=== PATIENT | female | born 1945 | race African-American/Black ===

== ENCOUNTER 2020-05-31 15:32 | Emergency (ER) | payer OTHER ==
[~2020-05-31] VITALS: Ht 162.6 cm; Wt 86.2 kg
[~2020-05-31 15:32] MED LIST: AMLODIPINE PO; ASPIRIN EC81 M1 PO; AVAPRO 150 MG150 M1 PO; CLEOCIN HCL300 MG PO; DILAUDID PO; FLEXERIL PO; HCTZ PO; IBUPROFEN 800800 MG PO; LANTUS SC; LANTUS SUBQ; LIDODERM 5%1 PATCH TOP; METFORMIN HCL500 MG; METFORMIN PO; MOBIC; MOBIC7.5 MG PO; PREDNISONE; RELAFEN500 MG PO
[2020-05-31 16:39] LABS: URINE BILIRUBIN NEGATIVE (Negative); URINE BLOOD 1+ (Negative); URINE CLARITY CLEAR; URINE COLOR YELLOW; URINE GLUCOSE-RANDOM* NEGATIVE (Negative); URINE KETONES NEGATIVE (Negative); URINE LEUKOCYTES-REFLEX 1+ (Negative); URINE NITRITE-REFLEX NEGATIVE (Negative); URINE PROTEIN (DIPSTICK) 1+ (Negative); URINE UROBILINOGEN 0.2 E.U./dl (0.2-1.0)
[2020-05-31 16:49] LABS: HEMATOCRIT 27.5 % (37.0-47.0); HEMOGLOBIN 9.2 gm/dL (12.0-15.0); MCH 28.2 pg (26.0-34.0); MCHC 33.3 g/dL (28.0-37.0); MCV 84.6 fL (80.0-100.0); PLATELET COUNT 119 thou/uL (150-400); RBC 3.26 mil/uL (4.20-5.00); RDW 28.6 % (10.5-14.5); WBC 9.5 thou/uL (4.0-11.0)
[2020-05-31 16:53] LABS: BACTERIA-REFLEX >30 Many /HPF (None Seen)
[2020-05-31 16:54] LABS: CASTS None Seen /LPF (None Seen); CRYSTALS None Seen /LPF (None Seen); SQUAMOUS 0-3 Few /LPF (0-3); URINE WBC-REFLEX 0-5 Rare /HPF (0-5)
[2020-05-31 16:55] LABS: URINE RBC 3-10 Few /HPF (0-2)
[2020-05-31 17:05] LABS: ANION GAP 12 mmol/L (7-16); BUN 13 mg/dL (7-18); CALCIUM 8.3 mg/dL (8.5-10.1); CHLORIDE 106 mmol/L (98-107); CO2 24 mmol/L (21-32); CREATININE 0.8 mg/dL (0.6-1.0); GLUCOSE 119 mg/dL (74-106); SODIUM 142 mmol/L (136-145)
[2020-05-31 17:13] LABS: ALBUMIN 3.6 g/dL (3.4-5.0); LIPASE 49 U/L (73-393); SGOT 13 U/L (15-37); SGPT 19 U/L (30-65); TOTAL PROTEIN 6.1 g/dL (6.4-8.2); TROPONIN-I <0.06 ng/mL (<0.06)
[2020-05-31 17:24] LABS: ABSOLUTE NEUTROPHILS 8.3 thou/uL (1.4-8.2); NUCLEATED RBCS 1 /100WBC
[2020-05-31 17:25] LABS: ANISOCYTOSIS 1+; POLYCHROMASIA OCCASIONAL
[2020-05-31] MEDS ORDERED: TRAMADOL 50 MG50 MG PO (18:22)
[2020-05-31] MEDS ORDERED: DULCOLAX10 MG RECTAL (21:47)
[2020-05-31 22:27] VITALS: BP 130/51
--- NOTE | 2020-06-01 10:51 | EKG ---
[facility] [place] [address] ELECTROCARDIOGRAM REPORT Name: TAWANA GARDUNO Room #: [facility]#: [id number] Admission: 05/31/20 Attend Phys: Discharge: 05/31/20 Date of : 43 Report #: [id number] THIS REPORT FOR: cc: FAM - Family physician unknown FAM - Family physician unknown Marcelo Garland MD [facility] THIS REPORT FOR: //name// [facility] ED Test Date: 2020-05-31 Test Time: 16:52:11 Pat Name: TAWANA GARDUNO Department: Room: Gender: F Cellulose Insulation Helper: FAMILIA : 1945 Requested By: Devin Ambrose Order Number: [id number] MD: Marcelo Garland Measurements Intervals [place] Rate: 80 P: 61 AR: 149 QRS: 51 QRSD: 91 T: 121 QT: 375 QTc: 433 Interpretive Statements Sinus rhythm with atrial premature complexes RSR' in V1 or V2, right VCD or RVH LVH with secondary repolarization abnormality Compared to ECG 03/29/2013 10:01:50 Atrial premature complexes are now present Electronically Signed On 06-01-2020 10:51:05 CDT by Marcelo Garland [email or web address] <ELECTRONICALLY SIGNED> By: Marcelo Garland MD, [facility] 06/01/20 1051 1652 1652 Marcelo Garland MD, [facility] /EPI
== END 2020-05-31 22:08 | disposition home or self-care (01) ==
LOC: ER 15:32
PROVIDERS: Emergency Medicine
DX: K56.41 Fecal impaction (principal); T45.1X5A Adverse effect of antineoplastic and immunosuppressive drugs, initial encounter; D64.9 Anemia, unspecified; R10.30 Lower abdominal pain, unspecified; C90.00 Multiple myeloma not having achieved remission; R19.7 Diarrhea, unspecified; R31.29 Other microscopic hematuria; Z98.890 Other specified postprocedural states; E11.9 Type 2 diabetes mellitus without complications; I10 Essential (primary) hypertension; Z79.899 Other long term (current) drug therapy; Z79.4 Long term (current) use of insulin; Z79.82 Long term (current) use of aspirin; Z88.1 Allergy status to other antibiotic agents; Z88.8 Allergy status to other drugs, medicaments and biological substances; Y92.89 Other specified places as the place of occurrence of the external cause

== ENCOUNTER 2020-09-14 19:51 | Inpatient (IN) | payer OTHER ==
[~2020-09-14] VITALS: Ht 162.6 cm; Wt 77.9 kg
[~2020-09-14 19:51] MED LIST changes: +DULCOLAX10 MG RECTAL; +TRAMADOL 50 MG50 MG PO
[2020-09-14 19:52] VITALS: BP 170/73
[2020-09-14] MEDS ORDERED: ELIQUIS2.5 MG PO (20:12)
[2020-09-14] MEDS ORDERED: PROTONIX40 M2 PO (20:12)
[2020-09-14] MEDS ORDERED: COZAAR 25 MG TA25 M1 PO (20:12)
[2020-09-14] MEDS ORDERED: NORVASC 2.5 MG2.5 M1 PO (20:15)
[2020-09-14 20:16] LABS: HEMOGLOBIN 9.6 gm/dL (12.0-15.0); MCV 85.4 fL (80.0-100.0)
[2020-09-14] MEDS ORDERED: KLOR-CON 1010 MEQ PO (20:16)
[2020-09-14 20:18] LABS: MCH 28.4 pg (26.0-34.0); MCHC 33.3 g/dL (28.0-37.0); PLATELET COUNT 138 thou/uL (150-400); RDW 30.2 % (10.5-14.5); WBC 19.4 thou/uL (4.0-11.0)
[2020-09-14 20:24] LABS: CALCIUM 8.7 mg/dL (8.5-10.1); POTASSIUM 3.2 mmol/L (3.5-5.1)
[2020-09-14 20:34] LABS: TOTAL BILIRUBIN 0.9 mg/dL (0.2-1.0); TOTAL PROTEIN 6.7 g/dL (6.4-8.2); TROPONIN-I 0.06 ng/mL (<0.06)
[2020-09-14 20:55] LABS: ABSOLUTE NEUTROPHILS 14.7 thou/uL (1.4-8.2); NUCLEATED RBCS 4 /100WBC
[2020-09-14 20:56] LABS: ANISOCYTOSIS 3+; LARGE PLATELETS RARE; POLYCHROMASIA OCCASIONAL
[2020-09-14 20:57] LABS: TARGET CELLS FEW
[2020-09-14 22:46] VITALS: BP 133/66
[2020-09-14 23:11] VITALS: BP 124/76
[2020-09-14 23:29] LABS: HEMOGLOBIN 7.7 gm/dL (12.0-15.0); RBC 2.73 mil/uL (4.20-5.00)
[2020-09-14 23:31] LABS: HEMATOCRIT 23.5 % (37.0-47.0); MCH 28.3 pg (26.0-34.0); MCHC 32.8 g/dL (28.0-37.0); MCV 86.3 fL (80.0-100.0); WBC 20.6 thou/uL (4.0-11.0)
[2020-09-14 23:38] LABS: INR 1.1; PROTIME 11.2 Seconds (9.3-11.4)
[2020-09-14 23:45] VITALS: BP 135/63
[2020-09-15] VITALS (8 sets, daily range): BP systolic 153–176; BP diastolic 72–87
[2020-09-15 00:48] LABS: CHOLESTEROL 202 mg/dL (<200); HDL CHOLESTEROL 81 mg/dL (>40); LDL CHOLESTEROL 94 mg/dL (<100); TC:HDL 2.5 Ratio (Not establshd); TRIGLYCERIDE 135 mg/dL (<150); VLDL 27 mg/dL (<40)
[2020-09-15 00:57] LABS: SERUM ASSESSMENT Clear
--- NOTE | 2020-09-15 03:30 | NUR ---
PT ADMITTED FROM ED AROUND 2330, PT IS AWAKE, ALERT AND ORIENTEDX4, RESTLESS, C/O GENERALIZED PAIN, PAIN MEDS GIVEN WITH NO RELIEF, HEPARIN GTT STARTED PER ORDER, BLADDER SCAN PERFORMED WITH RESIDUAL GREATER THAN 1500, STRAIGHT CATH WITH 1600ML OUT, EKG OBTAINED, SR ON THE MONITOR, ADMISSION ASSESSMENT COMPLETED, WILL CONTINUE TO MONITOR
[2020-09-15 05:09] LABS: HEMATOCRIT 24.2 % (37.0-47.0); HEMOGLOBIN 8.1 gm/dL (12.0-15.0); MCH 28.4 pg (26.0-34.0); MCHC 33.4 g/dL (28.0-37.0); MCV 85.1 fL (80.0-100.0); RBC 2.84 mil/uL (4.20-5.00); RDW 29.8 % (10.5-14.5); WBC 22.2 thou/uL (4.0-11.0)
[2020-09-15 05:38] LABS: CALCIUM 8.8 mg/dL (8.5-10.1); CREATININE 0.8 mg/dL (0.6-1.0); POTASSIUM 3.5 mmol/L (3.5-5.1)
[2020-09-15 06:42] LABS: URINE BILIRUBIN NEGATIVE (Negative); URINE BLOOD TRACE (Negative); URINE CLARITY CLEAR; URINE COLOR YELLOW; URINE GLUCOSE-RANDOM* NEGATIVE (Negative); URINE KETONES NEGATIVE (Negative); URINE LEUKOCYTES-REFLEX NEGATIVE (Negative); URINE NITRITE-REFLEX NEGATIVE (Negative); URINE PROTEIN (DIPSTICK) TRACE (Negative); URINE SPECIFIC GRAVITY 1.015 (1.005-1.035); URINE UROBILINOGEN 0.2 E.U./dl (0.2-1.0)
--- NOTE | 2020-09-15 09:09 | EKG ---
[facility] [place] [address] ELECTROCARDIOGRAM REPORT Name: TAWANA GARDUNO Room #: 215- ADM IN M.R.#: [id number] Admission: 09/14/20 Attend Phys: Bernard Hobson MD Discharge: Date of : 43 Report #: [id number] THIS REPORT FOR: cc: FAM - Family physician unknown FAM - Family physician unknown Venkata Sanchez MD [facility] ~ THIS REPORT FOR: //name// [facility] ED Test Date: 2020-09-14 Test Time: 21:43:57 Pat Name: TAWANA GARDUNO Department: Room: [facility] Gender: F Digester Cook: : 1945 Requested By: Arleen Michaels Order Number: [id number] MD: Venkata Sanchez Measurements Intervals [place] Rate: 100 P: 71 OK: 130 QRS: 56 QRSD: 88 T: 97 QT: 367 QTc: 474 Interpretive Statements Sinus tachycardia Atrial premature complexes Sinus pause Probable left atrial enlargement Abnormal R-wave progression, early transition Left ventricular hypertrophy Baseline wander in lead(s) I,III,aVR,aVL,V1,V3,V4,V5,V6 Compared to ECG 09/14/2020 19:58:31 Sinus pause or arrest now present Sinus rhythm no longer present T-wave abnormality no longer present Electronically Signed On 09-15-2020 9:09:18 MICROFILM EQUIPMENT INSPECTOR by Venkata Sanchez [email or web address] <ELECTRONICALLY SIGNED> By: Venkata Sanchez MD, [facility] 09/15/20 0909 42 42 Venkata Sanchez MD, [facility] /EPI
--- NOTE | 2020-09-15 09:09 | EKG ---
[facility] [place] [address] ELECTROCARDIOGRAM REPORT Name: TAWANA GARDUNO Room #: 215- ADM IN M.R.#: [id number] Admission: 09/14/20 Attend Phys: Bernard Hobson MD Discharge: Date of : 43 Report #: [id number] THIS REPORT FOR: cc: FAM - Family physician unknown FAM - Family physician unknown Venkata Sanchez MD [facility] ~ THIS REPORT FOR: //name// [facility] Test Date: 2020-09-15 Test Time: 01:31:06 Pat Name: TAWANA GARDUNO Department: Room: 215 Gender: F Dispatch Lead: AGY.JK02 : 1945 Requested By: Sherrie Moore Order Number: [id number] MD: Venkata Sanchez Measurements Intervals [place] Rate: 77 P: 76 RI: 138 QRS: 54 QRSD: 94 T: 107 QT: 397 QTc: 450 Interpretive Statements Sinus rhythm Left ventricular hypertrophy Nonspecific T abnormalities, lateral leads Compared to ECG 09/14/2020 19:58:31 Atrial premature complex(es) no longer present T-wave abnormality still present Electronically Signed On 09-15-2020 9:09:24 ORIGINATION SPECIALIST by Venkata Sanchez [email or web address] <ELECTRONICALLY SIGNED> By: Venkata Sanchez MD, FACC 09/15/20908 0 0 Venkata Sanchez MD, FAC /EPI
--- NOTE | 2020-09-15 09:09 | EKG ---
[facility] [place] [address] ELECTROCARDIOGRAM REPORT Name: TAWANA GARDUNO Zahra Room #: 215- ADM IN M.R.#: [id number] Admission: 09/14/20 Attend Phys: Bernard Hobson MD Discharge: Date of : 43 Report #: [id number] THIS REPORT FOR: cc: FAM - Family physician unknown FAM - Family physician unknown Venkata Sanchez MD [facility] ~ THIS REPORT FOR: //name// [facility] ED Test Date: 2020-09-14 Test Time: 19:58:31 Pat Name: TAWANA GARDUNO Department: Room: [facility] Gender: F Diagnostic Imaging Manager: KAYA : 1945 Requested By: Arleen Michaels Order Number: [id number] MD: Venkata Sanchez Measurements Intervals [place] Rate: 90 P: 68 MI: 139 QRS: 58 QRSD: 89 T: 96 QT: 365 QTc: 447 Interpretive Statements Sinus rhythm Atrial premature complex Abnormal R-wave progression, early transition Consider left ventricular hypertrophy Nonspecific T abnormalities, lateral leads Baseline wander in lead(s) V3 Compared to ECG 05/31/2020 16:52:11 T-wave abnormality now present Right ventricular hypertrophy no longer present Early repolarization no longer present Electronically Signed On 09-15-2020 9:09:14 SHAPER HAND by Venkata Sanchez [email or web address] <ELECTRONICALLY SIGNED> By: Venkata Sanchez MD, FAC 09/15/2009 57 57 Venkata Sanchez MD, FAC /EPI
--- NOTE | 2020-09-15 19:38 | NUR ---
PT CARE ASSUMED AT 0700. ASSESSMENTS CHARTED. MEDICATION CHARTED. RFA IV. SINUS RHYTHM. PT COMPLAINED OF PAIN ALL DAY. TAKES CHEMO AT ; FAMILY WANTS PT TRANSFERRED TO ; CM CALLED HAS NO ROOMS AVAILABLE. BLADDER SCANNED FOR 1027; PLACED BARCLAY PER DR ARANDA ORDER.
[2020-09-16 01:06] LABS: GLYCOHEMOGLOBIN (HGB A1C) 4.5 % (4.8-5.6)
--- NOTE | 2020-09-16 04:59 | NUR ---
CARE ASSUMED 1899. PT ORIENTED TO SELF. C/O OR LE, VAGINA AND ABDOMINAL PAIN. PAIN UNCONTROLLED BY FENTANYL . DILAUDID Q4 WITH BETTER PAIN CONTROL BUT , SHORTLY. VITALS STABLE. SR ON THE MONITOR., NO OTHER CONCERNS. WILL CONTINUE TO MONITOR AND FOLLOW POC.
[2020-09-16 06:52] VITALS: BP 148/83
--- NOTE | 2020-09-16 07:26 | HC ---
[facility] [place] [address] CONSULTATION Name: TAWANA GARDUNO Room #: 215-P ADM IN M.R.#: [id number] Admission: 09/14/20 Attend Phys: Bernard Hobson MD Discharge: Date of : 43 Report #: [id number] THIS REPORT FOR: cc: FAM - Family physician unknown FAM - Family physician unknown Bryson Cobb MD ~ REASON FOR CONSULTATION: Leukocytosis and history of IgA kappa multiple myeloma. HISTORY OF PRESENT ILLNESS: The patient is a 74-year-old -Nigerien female admitted for initially chest discomfort today and since yesterday has had more abdominal pain, who here has had a white count of approximately 19,000 and 20.6 and 22.2 today. She is having a hard time being a good historian. The patient has had abdominal pain at this time. It sounds like she has not had pain like this before. She may have had some slight diarrhea after her Velcade shots before that she gets roughly twice a week, last dose about maybe 3 or 4 days ago, does not usually get belly pain like this. She is not aware of any fever at home and did has a little bit of loose stools at home and a little bit yesterday. None today. No skin rash. No new arm or leg swelling. Again, she is almost writhing in pain and hard to answer questions about that. PAST MEDICAL HISTORY: Notable for the IgA kappa multiple myeloma from about 03/2020. Initial IgA was 4400. Most recently 23. [place] lambda serum light chain ratio was initially around 5831, most recently 1.49. Recent serum protein electrophoresis appears to show no monoclonal spike. History is also notable for gout, hypertension, dyslipidemia, diabetes type 2, vitamin B12 deficiency, herpes simplex virus infection, chronic AFib and a stroke in the past. SOCIAL HISTORY: She is retired. Recent nonsmoker, no alcohol, no street drugs. ALLERGIES: Reportedly to AMPICILLIN AND LISINOPRIL. MEDICATIONS: Here in the hospital currently include amlodipine 10 mg daily, docusate 100 at bedtime, levofloxacin IV daily, potassium chloride 10 mEq daily, losartan 100 mg daily, aspirin 81 daily, fentanyl 50 mcg p.r.n. IV, pantoprazole 40 daily, insulin on a sliding scale, morphine p.r.n. Note, the patient had been on atorvastatin. Note also as an outpatient, she had been on apixaban 2.5 b.i.d. PHYSICAL EXAMINATION: GENERAL: The patient appears her stated age. She is having quite a bit of time almost writhing in the bed from the abdominal pain, had a hard time communicating because it takes her breath away. VITAL SIGNS: Recent height is 5 feet 4 inches, which is 162.6 cm, weight 171 pounds or 77.76 kilograms. Recent blood pressure 176/79, O2 sat 96%, [place] [address] CONSULTATION Name: TAWANA GARDUNO Room #: 215-P [facility] IN M.R.#: [id number] Admission: 09/14/20 Attend Phys: Bernard Hobson MD Discharge: Date of : 43 Report #: [id number] respirations 17, pulse 117. Earlier today have been 85, temperature afebrile at 97.9. LYMPHATICS: No enlarged lymph nodes in the supraclavicular or cervical region. ABDOMEN: Distended/obese. On percussion has maybe some gas bubbles, does not make her hurt in pain like this. I did not do a full exam on her abdomen because of discomfort, I will defer that to others. No arm or leg swelling or ecchymosis other than usual. ASSESSMENT AND PLAN: 1. Leukocytosis, unclear to me whether the patient has been receiving dexamethasone in the outpatient. I do not see it list in MAR to her chemotherapy medicines list ____, so I cannot say that her white count is elevated from that and I have to ____ has gone up, but it could be related to the CT showing the possible enteritis. 2. Possible enteritis and abdominal pain, will defer to others whether surgical consultation or other intervention is needed. 3. IgA kappa multiple myeloma, appears to be responding well, currently about sixth cycle of therapy. Unclear whether the patient is on dexamethasone. Note that Revlimid recently held. The Velcade is being given. 4. Anemia. Hemoglobin outpatient had been 8.1 ____. 5. Thrombocytopenia. Here, it was 90 yesterday, 105 today at outpatient recently 143. 6. History of gout per others. 7. History of hypertension, meds per others. 8. Lipid abnormality. Meds per others. 9. Diabetes type 2, sliding scale and dietary changes. 10. History of atrial fibrillation, had been on apixaban. Currently, not on this medication. 11. History of cerebrovascular accident. Aspirin and meds per others. 12. History of HSV infection not an issue. We will follow with you. <ELECTRONICALLY SIGNED> By: Bryson Cobb MD 09/16/20 0726 0 41 Bryson Cobb MD /nt
[2020-09-16 07:33] LABS: HEMATOCRIT 23.2 % (37.0-47.0); HEMOGLOBIN 7.7 gm/dL (12.0-15.0); MCH 28.3 pg (26.0-34.0); MCHC 33.1 g/dL (28.0-37.0); MCV 85.4 fL (80.0-100.0); RBC 2.72 mil/uL (4.20-5.00); RDW 30.4 % (10.5-14.5); WBC 32.4 thou/uL (4.0-11.0)
[2020-09-16 07:40] LABS: CALCIUM 8.6 mg/dL (8.5-10.1); CREATININE 0.7 mg/dL (0.6-1.0); MAGNESIUM 1.9 mg/dL (1.8-2.4); POTASSIUM 3.7 mmol/L (3.5-5.1)
--- NOTE | 2020-09-16 09:54 | 2DMMODE ---
[facility] [place] [address] 2 D/M-MODE ECHOCARDIOGRAM Name: TAWANA GARDUNO Room #: 215-P ADM IN M.R.#: [id number] Admission: 09/14/20 Attend Phys: Bernard Hobson MD Discharge: Date of : 43 Report #: [id number] THIS REPORT FOR: cc: FAM - Family physician unknown FAM - Family physician unknown Venkata Sanchez MD [facility] ~ APPROVED REPORT Study performed: 09/16/2020 09:04:14 EXAM: Comprehensive 2D, Doppler, and color-flow Echocardiogram Patient Location: Bedside Room #: 215 Status: routine BSA: 1.83 HR: 93 bpm BP: 148/83 mmHg Rhythm: NSR Indications Chest Pain Hx: PAF, CVA, HTN, DM, CA. 2D Dimensions RVDd: 33.20 mm IVSd: 12.00 (7-11mm) LVOT Diam: 21.00 (18-24mm) LVDd: 48.07 mm PWd: 12.00 (7-11mm) LVDs: 39.56 (25-40mm) Aortic Root: 35.05 mm Volumes Left Atrial Volume (Systole) Single Plane 4CH: 29.96 mL Single Plane 2CH: 51.23 mL LA ESV Index: 24.00 mL/m2 Aortic Valve AoV Peak Gilles.: 1.36 m/s AO Peak Gr.: 7.43 mmHg LVOT Max P.44 mmHg LVOT Max V: 1.05 m/s VIMAL Vmax: 2.75 cm2 Mitral Valve E/A Ratio: 0.9 [facility] [address] [place] [address] 2 D/M-MODE ECHOCARDIOGRAM Name: TAWANA GARDUNO Room #: 215-P [facility] IN [facility]#: [id number] Admission: 09/14/20 Attend Phys: Bernard Hobson, Discharge: Date of : 43 Report #: [id number] MV Decel. Time: 118.86 ms MV E Max Gilles.: 1.07 m/s MV A Gilles.: 1.22 m/s MV PHT: 34.47 ms IVRT: 64.59 ms Pulmonary Valve PV Peak Gilles.: 1.25 m/s PV Peak Gr.: 6.20 mmHg Tricuspid Valve TR Peak Gilles.: 3.31 m/s RAP Estimate: 15.00 mmHg TR Peak Gr.: 44.00 mmHg PA Pressure: 59.00 mmHg Left Ventricle The left ventricle is normal size. Mild concentric left ventricular hypertrophy. Left ventricular systolic function is normal. LVEF is 50-55%. Mild diastolic dysfunction is present (impaired relaxation pattern). Right Ventricle The right ventricle is normal size. The right ventricular systolic function is normal. Atria The left atrium size is normal. The right atrium size is normal. Aortic Valve The aortic valve is normal in structure. No aortic regurgitation is present. There is no aortic valvular stenosis. Mitral Valve The mitral valve is normal in structure. Trace to mild mitral regurgitation. Tricuspid Valve The tricuspid valve is normal in structure. Mild tricuspid regurgitation. Estimated PAP is 55-60mmHg. Pulmonic Valve Pulmonic valve is not well visualized. Great Vessels The aortic root is normal in size. Ascending aorta is not well visualized. IVC is dilated and collapses <50% with [facility] [address] [address] 2 D/M-MODE ECHOCARDIOGRAM Name: SHAANTAWANA Sweeney Room #: 215-P [facility] IN ..#: [id number] Admission: 09/14/20 Attend Phys: Bernard Hobson, Discharge: Date of : 43 Report #: [id number] inspiration. Pericardium There is no pericardial effusion. <Conclusion> Normal left ventricle size Mild concentric hypertrophy Normal systolic function ejection fraction estimated 55% Grade 1 diastolic dysfunction Trace mitral valve insufficiency Mild tricuspid valve insufficiency Moderate pulmonary hypertension PA systolic pressure estimated at 55 mmHg No pericardial effusion <ELECTRONICALLY SIGNED> By: Venkata Sanchez MD, [facility] 09/16/20 0954 0954 0954 Venkata Sanchez MD, FACC /INF
--- NOTE | 2020-09-16 10:28 | NUR ---
LATE ENTRY FROM 09/15/20: CALLED BY 2N RN PABLO REQUESTING ASSISTANCE PT'S FAMILY REQUESTING TRANSFER TO [facility], PT IS FOLLOWED THERE FOR HER MM. CALLED TRANSFER CENTER AND SPOKE WITH COLE WHO CONFIMRED NO TELE OR MED SURG BEDS AVAILABLE 09/15/20. UPDATED Pablo, dR. ARANDA AND NURSING DAMAGE ADJUSTER.
[2020-09-16 12:04] VITALS: BP 130/88
--- NOTE | 2020-09-16 16:06 | NUR ---
Patient admits with chest pain/abd pain. patient resides at home alone in independent apt. She uses a cane/walker interchangeably. She has elevator in apt complex. She has diagnosis of myloma for approx 4-5 months, rec treatment at . Patient with recent hospital stay at [facility] a few months ago. she discharged to [facility] and recent dc home with home health care. patient and dtr cannot recall home health agency. left message with [facility] if can call with name of agency. Dtr works from home plans to visit tomorrow she was not informed to be at hospital before 5. Dtr reports yesterday she wanted patient to transfer to as patient was in so much pain she wanted to . Dtr reports she was saying it was in her bones. Dtr thought might be better at hospital where her oncologist is located. She feels her pain being managed today. [facility] called today to determine if beds avail at and they are at capacity. Notified dtr and phys. Patient may benefit from therapy evals. She does not wear oxygen at home. has been at [facility] in past but would not want to return. Plan home with resumption of home health care.
--- NOTE | 2020-09-16 19:22 | NUR ---
ASSUMED CARE AT CHANGE OF SHIFT. PT AWAKE, RESTLESS, AGGITATED. GENALIZED PAIN MANAGED WITH MEDICATIONS, RIGHT SIDE WEEKNESS NOTED. ALERT X2 WITH CONFUSION, MAKES GROANING SOUNDS AND WHEN ASKED WHY SHE IS GROAN SHE STATES "I AM?' "I DONT KNOW WHY." ASSIST TO REPOSITION IN BED. BEDREST TODAY. POOR NUTRITIONAL IMTAKE. ABLE TO DRINK WATER BUT STATES SHE CANT EAT. UPDATED DAUGHTER SARAH ON PT'S STATUS. TAKES MEDS WITH APPLESAUCE. PT UNABLE TO DEMONSTRATE THE CALL LIGHT. STAFF TO ANTICIPATE NEEDS. 4L NASAL CANNULA. FALL PRECATIONS IN PLACE.
[2020-09-16 22:32] VITALS: BP 147/64
[2020-09-17 03:38] VITALS: BP 153/59
--- NOTE | 2020-09-17 04:46 | NUR ---
PT ALERT AND ORIETED X 2. DENIES CHEST PAIN BUT REPORTS ABDOMINAL PAIN. PT CONTINUE TO MOAN IN PAIN. MORE AWAKE AND ALERT. ABLE TO MAKE MOST OF HER NEEDS KNOWN. MILD NAUSEA REPORTED OVERNIGHT. ALLEVIATED BY ZOFRAN. DENIES ANY OTHER CONCERNS. WILL CONTINUE TO MONITOR AND FOLLOW POC.
[2020-09-17 05:38] LABS: HEMATOCRIT 21.7 % (37.0-47.0); HEMOGLOBIN 7.3 gm/dL (12.0-15.0)
[2020-09-17 05:43] LABS: MCHC 33.5 g/dL (28.0-37.0); MCV 83.7 fL (80.0-100.0); RBC 2.6 mil/uL (4.20-5.00); RDW 30.3 % (10.5-14.5); WBC 34.8 thou/uL (4.0-11.0)
[2020-09-17 05:53] LABS: CREATININE 0.8 mg/dL (0.6-1.0); MAGNESIUM 1.9 mg/dL (1.8-2.4)
[2020-09-17 06:04] LABS: POTASSIUM 2.8 mmol/L (3.5-5.1)
[2020-09-17 07:45] VITALS: BP 152/80
--- NOTE | 2020-09-17 07:53 | HC ---
[facility] [place] [address] CONSULTATION Name: TAWANA GARDUNO Room #: 215- ADM IN .R.#: [id number] Admission: 09/14/20 Attend Phys: Bernard Hobson MD Discharge: Date of : 43 Report #: [id number] THIS REPORT FOR: cc: FAM - Family physician unknown FAM - Family physician unknown Ish Valenzuela MD ~ DATE OF SERVICE: 09/16/2020 INFECTIOUS DISEASE CONSULTATION ATTENDING PHYSICIAN: Dr. Hobson. REASON FOR EVALUATION: Marked leukocytosis in the setting of severe back pain, possible enterocolitis. HISTORY OF PRESENT ILLNESS: Chart reviewed, patient examined. This is a 74-year-old with extensive medical history including multiple myeloma for which she is being actively treated with combination chemotherapy as well as diabetes mellitus type 2 and sarcoidosis, who presented to the Emergency Room with complaints of chest pain. She noted it radiated to her back. She admitted to some ongoing dyspnea, nausea as well. As part of the initial evaluation, white count was elevated at 19.4, is only increased now at 32.4. Total body CT including angiography showed no evidence of aortic aneurysm or dissection, no evidence of PE, had some patchy bilateral pneumonitis and nonspecific changes. There is question of enteritis versus colitis with some mucosal thickening of the small bowel loops. Blood cultures collected at time of admission were sterile thus far. She has been afebrile and hemodynamically relatively stable. She has up until recently been on room air, now on 4 liters nasal cannula. Presently, she is quite agitated and restless and she is not quite sure why. She notes that she did not come in with this. However, she has a feeling of doom. Empirically, was started on levofloxacin and metronidazole. ALLERGIES: LISINOPRIL and AMPICILLIN, latter of which causes itch. CURRENT MEDICATIONS: Include amlodipine, enoxaparin, metoprolol, docusate sodium, hydromorphone, metronidazole, losartan, aspirin, pantoprazole, insulin lispro, p.r.n. analgesics, antiemetics, levofloxacin. PAST MEDICAL HISTORY: As noted above, history of multiple myeloma, currently on chemotherapy; history of sarcoidosis; diabetes mellitus; history of hypertension; history of TIAs. SOCIAL HISTORY: Former smoker. No ethanol. No illicit drug use. [facility] [address] [place] [address] CONSULTATION Name: TAWANA GARDUNO Room #: [address] [place] [address] IN .R.#: [id number] Admission: 09/14/20 Attend Phys: Bernard Hobson MD Discharge: Date of : 43 Report #: [id number] FAMILY HISTORY: Noncontributory. REVIEW OF SYSTEMS: Otherwise, notable complaints of marked GI upset with nausea. There is poor p.o. intake with anorexia and is complaining of dyspnea as well. PHYSICAL EXAMINATION: GENERAL: She is writhing, but it is not entirely clear what is driving it. She claims to hurt all over. Mixippeh-sz-jdvehc distress, appears somewhat undernourished. VITAL SIGNS: Temperature 98.5, pulse 105, respirations 18, blood pressure 173/72. SKIN: Warm, dry. There are no rashes. NECK: Supple. Extraocular muscles intact. Nasal cannula in place. LUNGS: Diminished breath sounds. HEART: Regular. Borderline tachycardic. I do not appreciate any murmur. ABDOMEN: Seemingly very tender even to percussion in multiple sites. GENITOURINARY AND RECTAL: Deferred. LABORATORY DATA: Echo, mild concentric hypertrophy, trace mitral valve insufficiency, moderate pulmonary hypertension. Electrolytes: Sodium 145, potassium 3.7, chloride 109, bicarbonate is 24, anion gap of 12, BUN and creatinine 13 and 0.7, glucose of 162. CBC: White count of 32.4, H and H 7.7 and 23.2, platelets of 91. Blood cultures are sterile thus far. Hemoglobin A1c of 4.5. Urinalysis otherwise unremarkable. Liver function tests on admission were otherwise unremarkable. Albumin of 4.0, total protein 6.7. Chest x-ray initially no acute process. ASSESSMENT AND PLAN: Marked leukocytosis. The patient may well have enterocolitis based on the imaging presented with chest pain excluded vascular emergency, who now is markedly encephalopathic with writhing in generalized pain. We will discontinue the levofloxacin. Would be concerned about adverse drug effect including neuropsychiatric given her sense of feeling doom that is maybe playing a role. If she has loose stools, we will send off studies including a stool for enteric pathogens and white cells. We will continue empiric therapy dose with cephalosporins and repeat chest x-ray. She remains quite tenuous. We will monitor expectantly for any additional clues that may further direct us with minimize medicine exposure as well could be in part driven by adverse drug effect this ____ in the hospital. I cannot entirely exclude an opportunistic type process, although absence of fever would make consideration of noninfectious causes a consideration as well. We will follow. [facility] [address] [place] [address] CONSULTATION Name: TAWANA GARDUNO Room #: 215-P ADM IN M.R.#: [id number] Admission: 09/14/20 Attend Phys: Bernard Hobson MD Discharge: Date of : 43 Report #: [id number] Thank you. <ELECTRONICALLY SIGNED> By: Ish Valenzuela MD 09/17/20 0753 1151 0420 Ish Valenzuela MD /nt
[2020-09-17 12:00] VITALS: BP 122/71
--- NOTE | 2020-09-17 15:53 | NUR ---
Spoke with RN who reports patient not eating well. Psychiatry consulted. Patient worked with therapy today, patient very weak. Sp with dtr and alerted likely with need for post acute care. Patient has been at [place] and would not want to return. Left list for [facility] and dtr to visit today to review.
[2020-09-17 16:45] VITALS: BP 131/56
[2020-09-17 19:50] VITALS: BP 135/55
--- NOTE | 2020-09-17 20:00 | NUR ---
RECEIVED PT'S CARE AROUND 0720; PT. ON BED; RESTING WITH EYES CLOSED; EQUAL CHEST RISING; SR ON THE MONITOR; DURING AM ASSESSMENT AOX4; C/O PAIN OVER ABDOMEN; C/O NAUSEA; PRN MEDICATION GIVEN; PHYSICIAN NOTIFIED; PRN MEDICATION ON PLACED; RE-ASSESSMENT PT. RESTING WITH EYES CLOSED; POTASSIUN REPLACED IV; DURING THE AFTERNOON NOTICED TENSE; ST. HAVING SOME PAIN OVER ABDOMEN; REFUSED PRN PAIN MEDICATION; EDUCATED ABOUT PAIN MANAGEMENT; REFUSED MEALS THROUGH THE DAY; EDUCATED ABOUT THE IMPORTANCE OF EATING; REFUSED IT; PHYSICIAN NOTIFIED; ORDERS ON PLACED; PRN PAIN MEDICATION GIVEN; PAIN RE-ASSESSMENT PT. RESTING WITH EYES CLOSED; POTASSIUM RE-ASSESSED; WNL; ASSESSMENT CHARGED; FOLLOWING POC; PASSED ON REPORT;
[2020-09-18 01:53] VITALS: BP 137/62
[2020-09-18 04:35] VITALS: BP 117/51
--- NOTE | 2020-09-18 04:35 | NUR ---
ASSUMED CARE AT 1900. PT ALERT AND AWAKE CARRYING NORMAL CONVERSATION. AT AROUND 2100, PT STARTED C/O LE AND ABDOMINAL PAIN. FENTANYL X 1 GIVEN WITH LESS ALLEVIATION. PT DID THE SAME MOANING IN PAIN AROUND 0200. PT POINTS AT SUBXIPHOID REGION THE SOURCE OF PAIN. PT GUARDS WHEN PALPATED. RATING THE PAIN AT 10/10. VITALS STABLE. SR ON THE MONITOR. 1 MG OF DILAUDID GIVEN. PAIN SEEM TO HAVE BEEN ALLEVIATED. PT ALSO IS SUSPECTED OF CONSTIPATION FROM YESTERDAYS KUB. 1 TIME ORDER RECEIVED FOR SUPPOSITORY . NO RESULTS. BOWEL SOUNDS ACTIVE. NOTED PT TO BELCHING TOO MUCH. REPORTS TO BE MINIMAL PASSING OF GAS. WILL CONTINUE TO MONITOR AND FOLLOW POC. CORRENTLY PT IS PAIN FREE. NO OTHER CONCERNS.
[2020-09-18 04:51] LABS: MCH 28.3 pg (26.0-34.0); WBC 27.2 thou/uL (4.0-11.0)
[2020-09-18 04:54] LABS: HEMATOCRIT 20.1 % (37.0-47.0); HEMOGLOBIN 6.7 gm/dL (12.0-15.0); MCHC 33.4 g/dL (28.0-37.0); MCV 84.7 fL (80.0-100.0); RBC 2.38 mil/uL (4.20-5.00); RDW 30.8 % (10.5-14.5)
[2020-09-18 05:10] LABS: CALCIUM 7.9 mg/dL (8.5-10.1); CREATININE 0.8 mg/dL (0.6-1.0); POTASSIUM 3.6 mmol/L (3.5-5.1)
[2020-09-18 07:30] VITALS: BP 130/51
[2020-09-18 11:20] VITALS: BP 113/44
[2020-09-18 11:50] VITALS: BP 122/50; BP 133/55
--- NOTE | 2020-09-18 13:03 | NUR ---
I have reviewed the documentation by LEIGHA TOLBERT from 09/18/20 to 09/18/20 and I concur with it. ZAIRA SCHUMACHER, PT, DPT
[2020-09-18 19:37] VITALS: BP 127/62
--- NOTE | 2020-09-18 20:17 | NUR ---
ASSUMED CARE AT CHANGE OF SHIFT. PT ALERT WITH IMPROVED ORRIENTATION. UP TO CHAIR FOR 3 HOURS WITH [facility] FOR TRANSFERS. 1UNIT BLOOD TRANSFUSION FOR HGM 6.7. 4L NASAL CANNULA COARSE LUNGS. BARCLAY WITH OUTPUT 900, NO BM,PASS GAS.TREVOR PAIN MANAGED WITH PRN MEDICAIOTN. POOR INTAKE WITH MEALS. 25% OF BREAKFAST, 5 BITES AT FOR LUNCH, DECLINED DINNER. PT UNABLE TO DEMONSTRATE CALL LIGHT.STAFF TO ANTICIPATE NEEDS. FALL PRECATIONS IN PLACE.
[2020-09-19 04:18] VITALS: BP 140/65
--- NOTE | 2020-09-19 05:05 | NUR ---
PATIENTS CARES WERE ASSUMED AT SHIFT CHANGE. A NEW IV WAS PLACED THIS SHIFT DUE TO OLD ONE INFELTRATED. A 22G PLACED IN THE RIGHT FORARM. PATIENT DID NOT NEED ANY COVERAGE DUE TO ACCUCHECK WAS 133. PATIENT WAS ABLE TO SLEEP MOST OF THIS SHIFT. THE BED IS IN A LOW AND LOCKED POSITION
[2020-09-19 05:47] LABS: CREATININE 0.7 mg/dL (0.6-1.0); MAGNESIUM 2.2 mg/dL (1.8-2.4); POTASSIUM 3.4 mmol/L (3.5-5.1)
[2020-09-19 05:49] LABS: HEMATOCRIT 22.9 % (37.0-47.0); HEMOGLOBIN 7.7 gm/dL (12.0-15.0); MCH 28.6 pg (26.0-34.0); RBC 2.69 mil/uL (4.20-5.00)
[2020-09-19 05:51] LABS: MCHC 33.6 g/dL (28.0-37.0); MCV 85.2 fL (80.0-100.0); PLATELET COUNT 50 thou/uL (150-400); RDW 27.3 % (10.5-14.5); WBC 25.4 thou/uL (4.0-11.0)
[2020-09-19 07:42] LABS: ABSOLUTE NEUTROPHILS 21.8 thou/uL (1.4-8.2); NUCLEATED RBCS 10 /100WBC
[2020-09-19 07:43] LABS: ANISOCYTOSIS 3+; PLATELET ESTIMATE DECREASED; SCHISTOCYTES 1+; TARGET CELLS 1+
[2020-09-19 07:50] VITALS: BP 138/64
[2020-09-19 12:05] VITALS: BP 136/65
[2020-09-19 16:20] VITALS: BP 142/82
[2020-09-19 16:30] VITALS: BP 144/66
--- NOTE | 2020-09-19 16:45 | NUR ---
MED ORDERS FOR NO BM OBTAINED SUPPOSITORY GIVEN WILL MONITOR FOR OUTCOMES. OT. DC'D OFF OXYGEN PER DR. TYSON AT BEDSIDE[facility] SATUR[facility] ON ROOM AIR AT 94% WILL SPOT CHECK THROUGHOUT THE DAY.
--- NOTE | 2020-09-19 16:46 | NUR ---
NO BM OF YET WILL PROCEED NOW TO [facility] PER VERBAL ORDER FROM THIS AM IF NOT RESULTS WITH PRIOR INTERVENTION. PT. SLEEPY THIS AFTERNOON ONLY REPORTING SOME MILD LEG DISCOMFORT, REPOSITIONED FOR COMFORT NOW OFF HER BACK. DAUGHTER WAS AT BEDSIDE EARLIER TODAY, SPOKE TO HER ABOUT POC.
--- NOTE | 2020-09-19 16:49 | NUR ---
Supervisor [employer] spoke with pt's dtr Venita and she does have the SNF listing. Dc planning options and needs reviewed. Pt was indep at home prior to admission and is max assist for transfer today. Pt's mental status and pain has improved some. Still on iv atb and labs are being monitored. Venita indicates they may be interested in [facility]. She will call me back with a couple of other choices. They do not want to go to [facility] as she was there recently prior to returning home with HH. Dc assortment planner to initiate SNF referral to [facility] in the am. Will follow.
[2020-09-19 19:41] VITALS: BP 148/51
[2020-09-20 04:59] VITALS: BP 142/68
[2020-09-20 05:33] LABS: HEMOGLOBIN 7.6 gm/dL (12.0-15.0)
[2020-09-20 05:37] LABS: HEMATOCRIT 22.9 % (37.0-47.0); MCH 28.4 pg (26.0-34.0); MCHC 33.1 g/dL (28.0-37.0); MCV 85.6 fL (80.0-100.0); RBC 2.68 mil/uL (4.20-5.00); RDW 26.9 % (10.5-14.5); WBC 23.5 thou/uL (4.0-11.0)
[2020-09-20 06:27] LABS: CREATININE 0.6 mg/dL (0.6-1.0); MAGNESIUM 2.2 mg/dL (1.8-2.4); POTASSIUM 3.3 mmol/L (3.5-5.1)
[2020-09-20 07:50] VITALS: BP 151/74
[2020-09-20 12:00] VITALS: BP 135/53
--- NOTE | 2020-09-20 12:23 | NUR ---
[facility] GIVEN AND HAD A MASSIVE BM AT THIS TIME. STOOL SAMPLE SENT TO [facility] ORDERED. PT. WAS TRANSFERRED BACK TO BED AT THIS TIME. SHE TOLERATED BEING UP IN A CHAIR FOR ABOUT 3 HOURS THIS AM. PAIN MEDICATION GIVEN FOR "SORE KNEES". DENIES ANY SOB, NO CP. MORE ENERGETIC TODAY AND MORE LUCID OVERALL.
--- NOTE | 2020-09-20 13:10 | NUR ---
FAXED REFERRAL TO [facility] RECEIVED CONFIRMATION AND [facility] IN ADM WILL REVIEW. DP TO FOLLOW.
[2020-09-20] MEDS ORDERED: CEFDINIR300 MG PO (13:35)
[2020-09-20] MEDS ORDERED: FLAGYL500 M1 PO (13:35)
[2020-09-20] MEDS ORDERED: METOPROLOL TART25 MG PO (13:36)
[2020-09-20] MEDS ORDERED: REMERON 30 MG T30 M1 PO (13:37)
--- NOTE | 2020-09-20 15:45 | NUR ---
[facility] can accept [facility] pt pending a covid test. Nursing and the attending are aware and test is pending. Dtr updated and she has also spoken with the [facility] liason. All parties anticipating dc to snf tomorrow, Wednesday. Nursing will need to fax her covid test results to [phone] in the morning. They can contact [facility] their oncall liason at [phone] to setup transport and get the number for report. Chart copy is in progress. Dc orders have been faxed but any updates will need to be refaxed prior to dc tomorrow. 124c in the chart copy. Please call dtr to confirm the dc time as well.
[2020-09-20 16:20] VITALS: BP 151/59
[2020-09-20 20:07] VITALS: BP 152/71
[2020-09-20 22:21] LABS: HEMOGLOBIN 8.4 gm/dL (12.0-15.0); MCH 28.6 pg (26.0-34.0); WBC 20.1 thou/uL (4.0-11.0)
[2020-09-20 22:23] LABS: HEMATOCRIT 25.3 % (37.0-47.0); MCHC 33.1 g/dL (28.0-37.0); MCV 86.3 fL (80.0-100.0); RBC 2.93 mil/uL (4.20-5.00); RDW 27.4 % (10.5-14.5)
--- NOTE | 2020-09-21 03:19 | NUR ---
PT CARE ASSUMED WITH PT IN BED.PT IS A/O X3.PT IS FORGETFUL.IV ACCESS ON RFA .PT IS ACCUCHECK ACHS .PT IS X2 ASSIST.PT HAS A BARCLAY CATHETER .PT APPEARED TO BE IN NO ACUTE DISTRESS.PT IS NSR.WILL CONTINUE TO MONITOR POC
[2020-09-21 04:14] VITALS: BP 147/54
[2020-09-21 07:50] VITALS: BP 147/52
[2020-09-21 09:06] VITALS: BP 147/52
--- NOTE | 2020-09-21 13:38 | NUR ---
ASSUMED CARE OF PT AT SHIFT CHANGE. ASSESSMENTS CHARTED. MEDS GIVEN PER DEC. PT A&OX3, NO C/O PAIN. NING JANE'Benoit. DISCHARGE ORDERS COMPLETE. TRANSPORTATION VIA WHEELCHAIR VAN TO FACILITY.
== END 2020-09-21 13:04 | DRG 871 ==
LOC: ER 19:51 → EROBS 22:16 → 2N 22:16
PROVIDERS: Internal Medicine Hematology & Oncology; Nurse Practitioner Family; Student in an Organized Health Care Education/Training Program; ADMIT Internal Medicine; ATTEND Internal Medicine
PROC: 30233N1 Transfusion of Nonautologous Red Blood Cells into Peripheral Vein, Percutaneous Approach (ICD-10-PCS; principal; 2020-09-18)
DX: A41.9 Sepsis, unspecified organism (principal); G92 Toxic encephalopathy; I48.20 Chronic atrial fibrillation, unspecified; C90.00 Multiple myeloma not having achieved remission; E44.0 Moderate protein-calorie malnutrition; K52.9 Noninfective gastroenteritis and colitis, unspecified; Z20.828 Contact with and (suspected) exposure to other viral communicable diseases; E11.9 Type 2 diabetes mellitus without complications; I10 Essential (primary) hypertension; M10.9 Gout, unspecified; E78.5 Hyperlipidemia, unspecified; D69.6 Thrombocytopenia, unspecified; D64.9 Anemia, unspecified; D86.9 Sarcoidosis, unspecified; Z60.2 Problems related to living alone; R63.4 Abnormal weight loss; R29.6 Repeated falls; E87.6 Hypokalemia; K59.00 Constipation, unspecified; F06.4 Anxiety disorder due to known physiological condition; T36.8X5A Adverse effect of other systemic antibiotics, initial encounter; Z88.1 Allergy status to other antibiotic agents; Z88.8 Allergy status to other drugs, medicaments and biological substances; Z86.73 Personal history of transient ischemic attack (TIA), and cerebral infarction without residual deficits; Z87.891 Personal history of nicotine dependence; Z92.21 Personal history of antineoplastic chemotherapy; Z68.29 Body mass index [BMI] 29.0-29.9, adult; Y92.89 Other specified places as the place of occurrence of the external cause; Z79.82 Long term (current) use of aspirin; Z79.899 Other long term (current) drug therapy
CPT/HCPCS: 10081